=== PATIENT | female | born 1950 | race Caucasian/White ===

== ENCOUNTER 2016-12-28 00:48 | Emergency (ER) | payer OTHER ==
[~2016-12-28] VITALS: Ht 170.2 cm; Wt 75.4 kg
[2016-12-28 00:54] VITALS: BP 148/93
[2016-12-28] MEDS ORDERED: LEVO200T5 PO (01:18)
[2016-12-28] MEDS ORDERED: ONDANSETRON 2MG/ML, 2ML IVPush ONE (01:30)
[2016-12-28] MEDS ORDERED: SODIUM CHLORIDE 0.9% 1,000ML IVBOLUS ONE (01:30)
[2016-12-28] MEDS ORDERED: ONDANSETRON 2MG/ML, 2ML ONE (01:54)
[2016-12-28 02:00] LABS: ASPARTATE AMINO TRANSFERASE 109 U/L (15-37); BLOOD UREA NITROGEN 9 mg/dL (7-18)
== END 2016-12-28 02:41 | disposition home or self-care (01) ==
LOC: ED 02:15
DX: F10.129 Alcohol abuse with intoxication, unspecified (principal); I10 Essential (primary) hypertension; F17.200 Nicotine dependence, unspecified, uncomplicated
CPT/HCPCS: 36415; 80053; 80307; 83690; 85025; 96374; 99284; J2405; J7030